=== PATIENT | male | born 1970 | race Caucasian/White ===

== ENCOUNTER 2017-06-26 12:26 | Emergency (ER) | payer MEDICAID ==
[~2017-06-26] VITALS: Ht 175.3 cm; Wt 86.2 kg
[2017-06-26 12:26] VITALS: BP_SYST 180
--- NOTE | 2017-06-26 12:26 | NUR ---
BROUGHT BACK TO BED #4 AND TRIAGED, REPORT GIVEN TO SURJIT
--- NOTE | 2017-06-26 12:26 | NUR ---
Pt report received from OSMAR Cueto. Pt c/o productive cough with yellow sputum, difficulty breathing, fever, chills, body aches, and generalized weakness that has been progressively worsening over the past week. Pt appears pale, diaphoretic. Pt on quality assurance monitor chassis.
--- NOTE | 2017-06-26 12:30 | NUR ---
# 20 gauge angiocath placed to LFA. Use of asceptic technique. Opsite placed over site. Blood return noted. Blood for lab drawn from site. Flushed with 10 cc of normal saline. No evidence of infiltration noted. Patient tolerated well.
--- NOTE | 2017-06-26 12:35 | NUR ---
Dr. Sylvester at bedside to assess pt.
--- NOTE | 2017-06-26 12:54 | NUR ---
RT called for treatment
[2017-06-26 13:01] LABS: HEMATOCRIT 48.1 % (36-54); HEMOGLOBIN 15.7 g/dL (14.0-18.0); MEAN CORPUSCULAR HEMOGLOBIN 28 pg (27-31); MEAN CORPUSCULAR HGB CONC 33 % (32-36); MEAN CORPUSCULAR VOLUME 85 fL (79.0-98.0); PLATELET COUNT (AUTO) 310 K/uL (130-430); RED BLOOD CELL COUNT(AUTO) 5.67 MIL/uL (4.2-6.2); RED CELL DISTRIBUTION WIDTH 13.3 % (9.0-15.0); WHITE BLOOD COUNT (AUTO) 12.7 K/uL (4.8-10.8)
--- NOTE | 2017-06-26 13:05 | NUR ---
Neb tx complete.
[2017-06-26] MEDS: IPRATROPIUM/ALBUTEROL SULFATE 3 ML AMPUL.NEB INH ONE (13:06)
[2017-06-26 13:07] LABS: ANION GAP 12 (5-15); CALCIUM 9.6 mg/dL (8.4-11.0); CHLORIDE 104 mmol/L (98-107); CREATININE 0.93 mg/dL (0.55-1.30); GFR AFRICAN AMERICAN 112 mL/min (>90); GLUCOSE 159 mg/dL (70-99); POTASSIUM 3.8 mmol/L (3.5-5.1); SODIUM SERUM 141 mmol/L (136-145); UREA NITROGEN, BLOOD 17 mg/dL (8-21)
[2017-06-26] MEDS: NACL 0.9% 1,000 ML IV ONE (13:10)
[2017-06-26] MEDS: methylPREDNISolone SOD SUCC/PF 62.5 MG/ML VIAL IVP ONE (13:10)
[2017-06-26] MEDS: MORPHINE SULFATE 10 MG/ML VIAL IVP ONE (13:11)
[2017-06-26] MEDS: METOCLOPRAMIDE HCL 10 MG/2 ML VIAL IVP ONE (13:11)
[2017-06-26 13:15] LABS: ALANINE AMINOTRANSFERASE 32 U/L (12-78); ALBUMIN 3.6 g/dL (3.4-4.8); ASPARTATE AMINOTRANSFERASE 25 U/L (10-37); TOTAL BILIRUBIN 0.3 mg/dL (0.0-1.0)
[2017-06-26 13:22] LABS: BASOPHILS % (MANUAL) 0 % (0-2); EOSINOPHILS % (MANUAL) 1 % (0-7); LYMPHOCYTES % (MANUAL) 16 % (20-46); MONOCYTES % (MANUAL) 6 % (0-11)
--- NOTE | 2017-06-26 13:30 | NUR ---
Pt states that he feels much better. Skin pink, warm, dry. Improvement in breathing and BBS noted. No need verbalized at this time.
[2017-06-26 14:22] VITALS: BP_SYST 148
--- NOTE | 2017-06-26 14:22 | NUR ---
Patient given written and verbal discharge instructions and verbalizes understanding. ER MD discussed with patient the results and treatment provided. Patient in stable condition. ID arm band removed. IV catheter removed intact and dressing applied, no active bleeding. Rx of Prednisone given. Patient educated on pain management and to follow up with PMD. Pain Scale 2/10. Opportunity for questions provided and answered.
== END 2017-06-26 14:22 | disposition home or self-care (01) ==
LOC: SED 12:26
DX: J45.901 Unspecified asthma with (acute) exacerbation (principal); J06.9 Acute upper respiratory infection, unspecified; R03.0 Elevated blood-pressure reading, without diagnosis of hypertension; F17.200 Nicotine dependence, unspecified, uncomplicated; Z71.6 Tobacco abuse counseling
CPT/HCPCS: 36415; 71045; 80053; 83605; 83880; 84484; 85007; 85027; 86710; 87040; 93005; 94640; 96361; 96374; 96375; 99285; J2270; J2765; J2930; J7030

== ENCOUNTER 2017-08-16 09:40 | Emergency (ER) | payer MEDICAID ==
[~2017-08-16] VITALS: Ht 175.3 cm; Wt 92.1 kg
[2017-08-16 09:58] VITALS: BP_SYST 158
[2017-08-16] MEDS ORDERED: KETOROLAC TROMETHAMINE 30 MG VIAL IVP ONE (10:30)
[2017-08-16] MEDS ORDERED: ONDANSETRON HCL 4 MG/2 ML VIAL IVP ONE (10:30)
[2017-08-16] MEDS ORDERED: MORPHINE 4 MG/ML INJ. SYRINGE IVP ONE (10:30)
[2017-08-16] MEDS ORDERED: cefTRIAXone 1 GM IVPB PREMIX 50 ML IV ONE (13:45)
[2017-08-16 14:40] VITALS: BP_SYST 131
== END 2017-08-16 14:40 | disposition home or self-care (01) ==
LOC: SED 09:40
DX: M51.26 Other intervertebral disc displacement, lumbar region (principal); G89.29 Other chronic pain; J45.909 Unspecified asthma, uncomplicated
CPT/HCPCS: 72148; 96374; 96375; 99284; J1885; J2270; J2405

== ENCOUNTER 2020-10-18 09:10 | Emergency (ER) | payer MEDICAID ==
[~2020-10-18] VITALS: Ht 175.3 cm; Wt 86.2 kg
[2020-10-18 09:10] VITALS: BP_SYST 179
--- NOTE | 2020-10-18 09:10 | NUR ---
Placed in room 3 . Placed on rn cardiac rehab, blood pressure machine and pulse oximeter. To gown for exam. Side rails up. Report given to OSMAR LEWIS.
--- NOTE | 2020-10-18 09:15 | NUR ---
PT PLACED IN BED 3, REPORT TO JOSHUA
--- NOTE | 2020-10-18 09:22 | NUR ---
MD RUIZAW ASSESSING PT AT BEDSIDE.
[2020-10-18] MEDS ORDERED: LISINOPRIL 10 MG TABLET (PRINIVIL) PO ONE (09:45)
[2020-10-18] MEDS ORDERED: LISINOPRIL 10 MG TABLET (PRINIVIL) ONE (10:04)
--- NOTE | 2020-10-18 10:08 | NUR ---
MEDICATION TO TREAT B/P GIVEN. WILL RE-ASSESS IN 30 MINUTES.
[2020-10-18 10:09] LABS: BASOPHILS % (AUTO) 0.6 % (0.0-2.0); EOSINOPHILS # (AUTO) 0.1 K/uL (0.0-0.4); EOSINOPHILS % (AUTO) 1.2 % (0.0-4.0); HEMATOCRIT 44.4 % (36-54); HEMOGLOBIN 14.6 g/dL (14.0-18.0); LYMPHOCYTES # (AUTO) 2.4 K/uL (1.0-5.5); LYMPHOCYTES % (AUTO) 27.4 % (20.5-51.5); MEAN CORPUSCULAR HEMOGLOBIN 28 pg (27-31); MEAN CORPUSCULAR HGB CONC 33 % (32-36); MEAN CORPUSCULAR VOLUME 85 fL (79.0-98.0); MONOCYTES # (AUTO) 0.7 K/uL (0.0-1.0); MONOCYTES % (AUTO) 8.2 % (1.7-9.3); NEUTROPHILS # (AUTO) 5.4 K/uL (1.8-7.7); NEUTROPHILS % (AUTO) 62.6 % (40.0-70.0); PLATELET COUNT (AUTO) 301 K/uL (130-430); RED BLOOD CELL COUNT(AUTO) 5.22 MIL/uL (4.2-6.2); RED CELL DISTRIBUTION WIDTH 14.2 % (9.0-15.0); WHITE BLOOD COUNT (AUTO) 8.6 K/uL (4.8-10.8)
[2020-10-18 10:16] LABS: CALCIUM 8.7 mg/dL (8.4-11.0); CREATININE 0.96 mg/dL (0.55-1.30); POTASSIUM 3.7 mmol/L (3.5-5.1)
[2020-10-18] MEDS ORDERED: LISI20TA30 PO (10:19)
[2020-10-18] MEDS ORDERED: AMOX-426 PO (10:19)
[2020-10-18 10:22] LABS: ALBUMIN 3.7 g/dL (3.4-4.8); TOTAL BILIRUBIN 0.4 mg/dL (0.0-1.0)
[2020-10-18 10:23] VITALS: BP_SYST 142
--- NOTE | 2020-10-18 10:24 | NUR ---
Patient given written and verbal discharge instructions and verbalizes understanding. ER MD discussed with patient the results and treatment provided. Patient in stable condition. ID arm band removed. Rx of AMOXICILLIN, LISINOPRIL given. Patient educated on pain management and to follow up with PMD. Pain Scale 0/10. Opportunity for questions provided and answered. Medication side effect fact sheet provided.
--- NOTE | 2020-10-18 10:24 | NUR ---
B/P IS NOW 142/89
== END 2020-10-18 10:24 | disposition home or self-care (01) ==
LOC: SED 09:10
DX: J98.01 Acute bronchospasm (principal); I10 Essential (primary) hypertension; F12.90 Cannabis use, unspecified, uncomplicated; Z71.6 Tobacco abuse counseling
CPT/HCPCS: 36415; 71045; 80053; 85025; 99284

== ENCOUNTER 2020-11-03 11:22 | Emergency (ER) | payer MEDICAID ==
[~2020-11-03] VITALS: Ht 175.3 cm; Wt 86.2 kg
[~2020-11-03 11:22] MED LIST: AMOX-426 PO; LISI20TA30 PO
[2020-11-03 11:32] VITALS: BP_SYST 136
[2020-11-03 12:17] LABS: BASOPHILS # (AUTO) 0.1 K/uL (0.0-0.2); BASOPHILS % (AUTO) 0.7 % (0.0-2.0); EOSINOPHILS % (AUTO) 0.2 % (0.0-4.0); HEMATOCRIT 44.6 % (36-54); HEMOGLOBIN 14.8 g/dL (14.0-18.0); LYMPHOCYTES # (AUTO) 1.8 K/uL (1.0-5.5); LYMPHOCYTES % (AUTO) 12.9 % (20.5-51.5); MEAN CORPUSCULAR HEMOGLOBIN 28 pg (27-31); MEAN CORPUSCULAR HGB CONC 33 % (32-36); MEAN CORPUSCULAR VOLUME 85 fL (79.0-98.0); MONOCYTES # (AUTO) 0.7 K/uL (0.0-1.0); MONOCYTES % (AUTO) 4.8 % (1.7-9.3); NEUTROPHILS # (AUTO) 11.4 K/uL (1.8-7.7); NEUTROPHILS % (AUTO) 81.4 % (40.0-70.0); PLATELET COUNT (AUTO) 305 K/uL (130-430); RED BLOOD CELL COUNT(AUTO) 5.23 MIL/uL (4.2-6.2); RED CELL DISTRIBUTION WIDTH 14.6 % (9.0-15.0)
[2020-11-03 12:29] LABS: C-REACTIVE PROTEIN QUANT 1.9 mg/dL (0-0.5)
[2020-11-03 12:30] LABS: CALCIUM 8.3 mg/dL (8.4-11.0); CREATININE 1.12 mg/dL (0.55-1.30); POTASSIUM 3.8 mmol/L (3.5-5.1)
[2020-11-03 12:35] LABS: PROTHROMBIN TIME 10.2 SECS (9.5-12.5)
[2020-11-03 12:41] LABS: ALBUMIN 3.5 g/dL (3.4-4.8); TOTAL BILIRUBIN 0.6 mg/dL (0.0-1.0)
[2020-11-03] MEDS ORDERED: CLIN150C16 PO (13:42)
[2020-11-03] MEDS ORDERED: IBUP-1971 PO (13:42)
[2020-11-03 14:03] VITALS: BP_SYST 136
== END 2020-11-03 14:03 | disposition home or self-care (01) ==
LOC: SED 11:22
DX: L03.311 Cellulitis of abdominal wall (principal); I10 Essential (primary) hypertension; J45.909 Unspecified asthma, uncomplicated; Z79.899 Other long term (current) drug therapy
CPT/HCPCS: 76376; 80053; 83605; 85025; 85610-TC; 85730-TC; 86140; 99284

== ENCOUNTER 2020-11-06 14:01 | Emergency (ER) | payer MEDICAID ==
[~2020-11-06] VITALS: Ht 175.3 cm; Wt 81.6 kg
[~2020-11-06 14:01] MED LIST changes: +CLIN150C16 PO; +IBUP-1971 PO
[2020-11-06 14:05] VITALS: BP_SYST 138
[2020-11-06] MEDS ORDERED: LIDOCAINE 1% 10 MG/ML, 20 ML MDV INJ ONE (14:15)
[2020-11-06] MEDS ORDERED: BACITRACIN 1 GM OINT TP ONE (14:15)
[2020-11-06] MEDS ORDERED: DIPH-TET-PERTUS Vaccine 0.5 ML VIAL (ADACEL) I.M. ONE (14:15)
[2020-11-06 14:38] VITALS: BP_SYST 138
== END 2020-11-06 14:41 | disposition home or self-care (01) ==
LOC: SED 14:01
DX: L02.415 Cutaneous abscess of right lower limb (principal); I10 Essential (primary) hypertension; J45.909 Unspecified asthma, uncomplicated; Z79.899 Other long term (current) drug therapy
CPT/HCPCS: 10060; 90471; 90715; 99283; J2001

== ENCOUNTER 2020-11-08 13:51 | Emergency (ER) | payer MEDICAID ==
[~2020-11-08] VITALS: Ht 175.3 cm; Wt 90.7 kg
[2020-11-08 14:23] VITALS: BP_SYST 138
[2020-11-08] MEDS ORDERED: BACITRACIN 1 GM OINT TP ONE (14:30)
[2020-11-08 14:49] VITALS: BP_SYST 138
== END 2020-11-08 14:49 | disposition home or self-care (01) ==
LOC: SED 13:51
DX: L02.415 Cutaneous abscess of right lower limb (principal); Z48.00 Encounter for change or removal of nonsurgical wound dressing; I10 Essential (primary) hypertension; J45.909 Unspecified asthma, uncomplicated; Z79.899 Other long term (current) drug therapy
CPT/HCPCS: 99283

== ENCOUNTER 2021-02-10 17:11 | Emergency (ER) | payer MEDICAID ==
[~2021-02-10] VITALS: Ht 175.3 cm; Wt 90.7 kg
[~2021-02-10 17:11] MED LIST changes: +CLIN-22 PO; -CLIN150C16 PO
[2021-02-10 17:46] VITALS: BP_SYST 183
== END 2021-02-10 20:56 | disposition left against medical advice (07) ==
LOC: SED 17:11
DX: R10.9 Unspecified abdominal pain (principal); Z53.21 Procedure and treatment not carried out due to patient leaving prior to being seen by health care provider

== ENCOUNTER 2022-06-08 22:22 | Emergency (ER) | payer MEDICAID ==
[~2022-06-08] VITALS: Ht 175.3 cm; Wt 94.3 kg
[2022-06-08 22:35] VITALS: BP_SYST 124
[2022-06-08] MEDS ORDERED: EPINEPHrine HCL 1 MG/ML VIAL IM ONE (23:00)
[2022-06-08] MEDS ORDERED: PRED20TA PO (23:00)
[2022-06-08] MEDS ORDERED: EPINEPHRINE HCL/PF 1 MG/ML AMP ONE (23:02)
[2022-06-09 00:30] VITALS: BP_SYST 136
== END 2022-06-09 00:30 | disposition home or self-care (01) ==
LOC: SED 22:22
DX: R21 Rash and other nonspecific skin eruption (principal); R06.02 Shortness of breath; I10 Essential (primary) hypertension; J45.909 Unspecified asthma, uncomplicated; Z79.899 Other long term (current) drug therapy
CPT/HCPCS: 99283; 96374; J0171

== ENCOUNTER 2023-05-06 09:07 | Emergency (ER) | payer MEDICAID ==
[~2023-05-06] VITALS: Ht 172.7 cm; Wt 94.3 kg
[2023-05-06 09:07] VITALS: BP_SYST 111; PULSE 86; RESP 26; TEMP 97.2; O2SAT 95
[~2023-05-06 09:07] MED LIST changes: +PRED20TA PO
[2023-05-06] MEDS ORDERED: ALBUTEROL SULFATE 0.083% 2.5 MG/3 ML VIAL.NEB INH ONE (09:15)
[2023-05-06] MEDS ORDERED: IPRATROPIUM BROM 0.5 MG/2.5 ML VIAL.NEB (ATROVENT) INH ONE (09:15)
[2023-05-06] MEDS ORDERED: IBUPROFEN 400 MG TABLET PO ONE (09:30)
[2023-05-06] MEDS ORDERED: ACETAMINOPHEN 500 MG TABLET PO ONE (09:30)
[2023-05-06 09:43] LABS: BASOPHILS # (AUTO) 0.1 K/uL (0.0-0.2); BASOPHILS % (AUTO) 0.8 % (0.0-2.0); EOSINOPHILS # (AUTO) 0.3 K/uL (0.0-0.4); EOSINOPHILS % (AUTO) 2.7 % (0.0-4.0); HEMATOCRIT 48.1 % (36-54); HEMOGLOBIN 15.7 g/dL (14.0-18.0); LYMPHOCYTES # (AUTO) 1.6 K/uL (1.0-5.5); LYMPHOCYTES % (AUTO) 17.2 % (20.5-51.5); MEAN CORPUSCULAR HEMOGLOBIN 28 pg (27-31); MEAN CORPUSCULAR HGB CONC 33 % (32-36); MEAN CORPUSCULAR VOLUME 85 fL (79.0-98.0); MONOCYTES % (AUTO) 10.8 % (1.7-9.3); NEUTROPHILS # (AUTO) 6.5 K/uL (1.8-7.7); NEUTROPHILS % (AUTO) 68.5 % (40.0-70.0); PLATELET COUNT (AUTO) 299 K/uL (130-430); RED BLOOD CELL COUNT(AUTO) 5.67 MIL/uL (4.2-6.2); WHITE BLOOD COUNT (AUTO) 9.4 K/uL (4.8-10.8)
[2023-05-06 09:53] LABS: ANION GAP 6 (5-15); CALCIUM 9.2 mg/dL (8.4-11.0); CARBON DIOXIDE 28 mmol/L (23-29); CHLORIDE 99 mmol/L (98-107); CREATININE 1.15 mg/dL (0.55-1.30); GFR AFRICAN AMERICAN 85 mL/min (>90); GLUCOSE 116 mg/dL (74-106); POTASSIUM 3.3 mmol/L (3.5-5.1); SODIUM SERUM 133 mmol/L (136-145); UREA NITROGEN, BLOOD 16 mg/dL (8-21)
[2023-05-06] MEDS ORDERED: ALBMDI INH (09:56)
[2023-05-06] MEDS ORDERED: PRED20TA PO (09:57)
[2023-05-06 10:00] LABS: ALANINE AMINOTRANSFERASE 40 U/L (12-78); ALBUMIN 3.7 g/dL (3.4-4.8); ASPARTATE AMINOTRANSFERASE 19 U/L (10-37); BILIRUBIN,DIRECT 0.2 mg/dL (0.0-0.3); TOTAL BILIRUBIN 0.7 mg/dL (0.0-1.0); TOTAL PROTEIN, SERUM 7.4 g/dL (6.4-8.3)
[2023-05-06] MEDS ORDERED: predniSONE 20 MG TABLET PO ONE (10:00)
[2023-05-06 10:02] LABS: GFR NON AFRICAN-AMERICAN 70 mL/min (>90)
[2023-05-06 10:32] LABS: INFLUENZA TYPE A Negative (NEGATIVE); INFLUENZA TYPE B NEGATIVE (NEGATIVE)
[2023-05-06 11:03] VITALS: BP_SYST 122; PULSE 86; RESP 14; TEMP 97.1; O2SAT 97
== END 2023-05-06 11:02 | disposition home or self-care (01) ==
LOC: SED 09:07
DX: J45.901 Unspecified asthma with (acute) exacerbation (principal); J06.9 Acute upper respiratory infection, unspecified; R05.9 Cough, unspecified; R06.02 Shortness of breath; M79.10 Myalgia, unspecified site; I10 Essential (primary) hypertension; Z79.899 Other long term (current) drug therapy; Z20.822 Contact with and (suspected) exposure to COVID-19
CPT/HCPCS: 99285; 71045; 87426; 80076; 80048; 85025; 84484; 36415; 93005; 94640; 87804 ×2; J7512

== ENCOUNTER 2023-07-29 09:13 | Emergency (ER) | payer MEDICAID ==
[~2023-07-29] VITALS: Ht 172.7 cm; Wt 99.3 kg
[~2023-07-29 09:13] MED LIST changes: +ALBMDI INH
[2023-07-29 09:30] VITALS: BP_SYST 159; PULSE 72; RESP 19; TEMP 97.7; O2SAT 95
[2023-07-29] MEDS: predniSONE 20 MG TABLET PO ONE (09:52)
[2023-07-29 09:55] LABS: COVID19 ANTIGEN SOFIA FIA NEGATIVE (NEGATIVE)
[2023-07-29] MEDS: ALBUTEROL SULFATE 0.083% 2.5 MG/3 ML VIAL.NEB INH ONE (09:56)
[2023-07-29] MEDS: IPRATROPIUM BROM 0.5 MG/2.5 ML VIAL.NEB (ATROVENT) INH ONE (09:56)
[2023-07-29 09:59] LABS: INFLUENZA TYPE A Negative (NEGATIVE); INFLUENZA TYPE B NEGATIVE (NEGATIVE)
[2023-07-29] MEDS ORDERED: INSULIN GLARGINE 100 UNITS/ML, 10 ML VIAL ONE (10:39)
[2023-07-29] MEDS: ACETAMINOPHEN 500 MG TABLET PO ONE (10:41)
[2023-07-29] MEDS: KETOROLAC TROMETHAMINE 30 MG VIAL IM ONE (10:41)
[2023-07-29 11:00] VITALS: BP_SYST 159; PULSE 72; RESP 19; TEMP 97.7; O2SAT 96
== END 2023-07-29 11:10 | disposition home or self-care (01) ==
LOC: SED 09:13
DX: J45.901 Unspecified asthma with (acute) exacerbation (principal); J06.9 Acute upper respiratory infection, unspecified; R07.89 Other chest pain; Z79.899 Other long term (current) drug therapy; Z20.822 Contact with and (suspected) exposure to COVID-19
CPT/HCPCS: 99284; 71045; 87426; 94640; 96372; 87804 ×2; J7512; J1815; J1885; 36415

== ENCOUNTER 2024-04-12 08:49 | Emergency (ER) | payer MEDICAID, OTHER ==
[~2024-04-12] VITALS: Ht 162.6 cm; Wt 90.7 kg
[2024-04-12 09:02] VITALS: BP_SYST 141; PULSE 69; RESP 22; TEMP 98.3; O2SAT 96
[2024-04-12] MEDS: IPRATROPIUM/ALBUTEROL SULFATE 3 ML AMPUL.NEB (DUONEB) INH ONE (09:14)
[2024-04-12 11:26] LABS: INFLUENZA TYPE A NEGATIVE (NEGATIVE); INFLUENZA TYPE B NEGATIVE (NEGATIVE)
[2024-04-12] MEDS ORDERED: ALBMDI INH (11:51)
[2024-04-12] MEDS ORDERED: PRED20TA PO (11:51)
[2024-04-12 12:09] VITALS: BP_SYST 141; PULSE 69; RESP 22; TEMP 98.3; O2SAT 94
== END 2024-04-12 12:07 | disposition home or self-care (01) ==
LOC: SED 08:49
DX: J45.909 Unspecified asthma, uncomplicated (principal); I10 Essential (primary) hypertension; Z20.822 Contact with and (suspected) exposure to COVID-19; Z79.52 Long term (current) use of systemic steroids; Z79.899 Other long term (current) drug therapy
CPT/HCPCS: 36415; 71045; 94640; 99284